=== PATIENT | male | born 2005 | race Two or more races ===

== ENCOUNTER 2024-07-03 16:45 | Emergency (ER) | payer OTHER, SELFPAY ==
[2024-07-03 16:54] VITALS: BP 118/85
[2024-07-03 17:37] VITALS: BMI 22.2
--- NOTE | 2024-07-03 17:46 | ED.GENMED ---
History of Present Illness
General
Chief Complaint: Abdominal Symptoms
Time Seen by Provider: 07/03/24 17:46
History of Present Illness
History of Present Illness:
HPI: 5 days ago, the patient started having nausea. His nausea gets worse with eating. He currently does not have nausea as he has not eaten much today. Yesterday had some diffuse abdominal discomfort but currently no longer has any abdominal
discomfort. 5 days ago when this all started, he had 'sausage that did not look good'. He denies marijuana use. He also had some loose stool. He does not take any medication.
EXAM:
GENERAL: Well appearing in no distress
HEENT: Moist oral mucosa
CARDIOVASCULAR: No murmurs, normal heart rate, regular rhythm, No chest wall tenderness
PULMONARY: No respiratory distress, breath sounds are clear and equal
ABDOMEN: Soft with no peritoneal signs, no tenderness
NEUROLOGIC: Excellent strength all extremities, no coordination deficits
PSYCHIATRIC: Appropriate mental status, normal insight and judgement
EXTREMITIES: Nontender, no edema, moves all extremities equally
SKIN: No rash, no lesions
TIME OF INITIAL ENCOUNTER: 5:50 PM
NUMBER AND COMPLEXITY OF PROBLEMS ADDRESSED AT THE ENCOUNTER
� Chronic conditions affecting care: Denies any significant past medical history
� Acute Exacerbation and/or Progression of Chronic Illness: This is an acute problem
� Differential Diagnosis includes: Viral syndrome, GERD, gastric ulcer, duodenal ulcer, nonspecific nausea
AMOUNT AND/OR COMPLEXITY OF DATA TO BE REVIEWED AND ANALYZED
� I performed an independent evaluation of and my interpretation is:
EKG:
CT:
X-rays:
Laboratory Studies: White count normal, chemistries unremarkable, lipase normal.
Other:
� Review of other/old records: I looked for old records in [facility] are no old records available for review
� Clinical information was obtained by an independent historian: None needed
� Prescriptions/Medications Considered but not given:
� Further testing considered but not performed: No clear indication for CT imaging as he has no abdominal tenderness.
RISK OF COMPLICATIONS AND/OR MORBIDITY OR MORTALITY OF PATIENT MANAGEMENT
� Social determinants of health affecting care: Lives at home
� Discussion with other providers:
� Escalation of care including admission/observation vs risk of discharge considered: The patient appears well-hydrated. His vital signs are normal. He no longer has nausea and no longer has abdominal pain. Will check labs and
reassess. On reassessment, the patient describes migraine type of symptoms. He was given Toradol and Reglan and Benadryl. At 8:30 PM, he feels markedly improved.
Phy Exam
Physical Exam
Physical Exam:
See HPI
Course
Orders/Labs/Results
Orders:
Orders
07/03/24 17:51
0.9% Sodium Chloride 1000 ml [Nss] 1,000 ml IV BOLUS
Famotidine [Pepcid] 20 mg IV NOW STA
07/03/24 17:54
Complete Blood Count/With Diff Urgent
Comprehensive Metabolic Panel Urgent
Lipase Urgent
07/03/24 19:07
Diphenhydramine [Benadryl] 25 mg IV NOW STA
Ketorolac [Toradol] 15 mg IV NOW STA
Metoclopramide [Reglan] 10 mg IV NOW STA
Abnormal Lab Results
07/03/24
17:54
MCV 76.4 L fL
(80.0-94.0)
MPV 10.7 H fL
(7.4-10.4)
Absolute Lymphs (auto) 1.1 L 10^3/uL
(1.2-3.4)
Lymphocytes % 14.7 L %
(20.5-51.1)
Potassium 3.4 L mmol/L
(3.5-5.1)
Calcium 8.3 L mg/dl
(8.4-10.2)
Total Protein 6.1 L g/dl
(6.3-8.2)
07/03/24 17:54
07/03/24 17:54
Vital Signs
Initial and Last Documented VS:
Initial Vital Signs
Temp Pulse Resp BP Pulse Ox
98.1 F 83 16 118/85 96
07/03/24 16:54 07/03/24 16:54 07/03/24 16:54 07/03/24 16:54 07/03/24 16:54
Last Documented Vital Signs
Temp Pulse Resp BP Pulse Ox
98.1 F 83 16 118/85 96
07/03/24 16:54 07/03/24 16:54 07/03/24 16:54 07/03/24 16:54 07/03/24 16:54
*Critical Care Note
Total Time (30-74mins, 75-104mins- exclusive of procedures): Not Applicable
ED Attending Note
-
Portions of this chart may have been created with voice recognition software.� Occasional wrong word or��sound alike� substitutions may have occurred due to the inherent limitations of voice recognition software.
Discharge Plan
Departure
Referrals:
Dean Khan MD [Family Provider] -
Interventions
Interventions:
*Risk Screen - Suicide Last Done: 07/03/24 17:38
*General Assessment Last Done: 07/03/24 16:54
*Neglect/Abuse Screening Last Done: 07/03/24 17:38
ED- Fall Risk Assessment Last Done: 07/03/24 17:49
*ED COVID-19 Vaccine History Last Done: 07/03/24 16:54
JE-[id number]-Vbsyawwons Assessment Last Done: 07/03/24 17:49
Discharge Date and Time
Print Language: POLISH
[2024-07-03] MEDS: PEPCID 20 MG IV (17:59)
[2024-07-03] MEDS: NSS 1000 IV (17:59)
[2024-07-03 18:00] VITALS: BP 111/75
[2024-07-03 18:02] LABS: % Basophils 0.4 % (0-2); % Eosinophils 1.3 % (0-6); % Immature Granulocytes 0.3 % (0-0.5); % Lymphocytes 14.7 % (20.5-51.1); % Monocytes 8.4 % (1.7-9.3); % Neutrophils 74.9 % (42.2-75.2); Absolute Eosinophils 0.1 10^3/uL (0-0.7); Absolute Lymphocytes 1.1 10^3/uL (1.2-3.4); Absolute Monocytes 0.6 10^3/uL (0.1-0.6); Absolute Neutrophils 5.6 10^3/uL (1.4-6.5); Hematocrit 44.3 % (39.0-52.0); Hemoglobin 16.1 g/dL (13.0-18.0); Mean Corp Hgb Conc. 36.3 g/dL (33.0-37.0); Mean Corpuscular Hgb 27.8 pg (27.0-31.0); Mean Corpuscular Volume 76.4 fL (80.0-94.0); Mean Platelet Volume 10.7 fL (7.4-10.4); Nucleated Red Blood Cells % 0 % (-); Platelet Count 183 10^3/uL (130-400); Red Cell Dist. Width 12.9 % (11.5-14.5); White Blood Cell Count 7.5 10^3/uL (4.8-10.8)
[2024-07-03 18:19] LABS: ALT (SGPT) 16 U/L (0-50); AST (SGOT) 24 U/L (17-59); Albumin 3.9 g/dl (3.5-5.0); Alkaline Phosphatase 52 U/L (38-126); Blood Urea Nitrogen 13 mg/dl (9-20); Calcium 8.3 mg/dl (8.4-10.2); Carbon Dioxide 23 mmol/L (22-30); Chloride 107 mmol/L (98-107); Estimated Creatinine Clearance 121 ml/min; Glucose 83 mg/dl (70-99); Lipase 95 U/L (23-300); Potassium 3.4 mmol/L (3.5-5.1); Sodium 138 mmol/L (135-145); Total Bilirubin 0.9 mg/dl (0.2-1.3); Total Protein 6.1 g/dl (6.3-8.2); eGFR > 60.00
[2024-07-03] MEDS: REGLAN 10 MG IV (19:17)
[2024-07-03] MEDS: TORADOL 15 MG IV (19:17)
[2024-07-03 20:00] VITALS: BP 96/63
== END 2024-07-03 22:00 | disposition home or self-care (01) ==
LOC: EMR 16:45
PROVIDERS: EMERGENCY PHYSICIAN Emergency Medicine; FAMILY PHYSICIAN Internal Medicine
DX: G43.909 Migraine, unspecified, not intractable, without status migrainosus (principal); R11.0 Nausea
CPT/HCPCS: 99283; 96374; 96375; 96361; 80053; 83690; 85025

== ENCOUNTER 2024-08-07 16:28 | Emergency (ER) | payer OTHER, SELFPAY ==
[2024-08-07 16:30] VITALS: BP 128/75
[2024-08-07] MEDS: OMNIPAQUE 50 ML PO (18:31)
--- NOTE | 2024-08-07 18:40 | ED.GENMED ---
History of Present Illness
General
Chief Complaint: Abdominal Pain
Source: patient
Exam Limitations: none
Time Seen by Provider: 08/07/24 17:55
History of Present Illness
History of Present Illness:
This is a 19 year old male that comes in with c/o abd pain. States that he was here about a month ago after eating at a deli. States that at first he had nausea for a week. Then constipation and then diarrhea. Then he was fine. States that it came
back. States that he went to . Then med week he started with diarrhea. States that this past month he has been bloated, constipation and then diarrhea. States that he is very gassy and then there is nothing. States that he has abd pain and has
lost about 10 pounds. States that his abd pain is a 3/10 with nausea and the diarrhea. States that he did have some urinary burning yesterday. Denies any fever, chills, chest pain, SOB, vomiting, headache, dizziness.
Past History
Past History
ED Past Medical History: None; Negative Asthma, HTN, Hypercholesterolemia or NIDDM
ED Past Surgical History: Tonsilectomy and Other (Eye surgery)
Social History
Tobacco: Smoker (very occasionally)
Alcohol: None
Personal: Single
Living: with family
Review of Systems
Review of Systems
All Other Systems: ROS reviewed and negative except as documented in HPI and ROS
Constitutional: Reports no symptoms; Denies fever or chills
EENT: Reports no symptoms
Respiratory: Reports no symptoms; Denies cough or trouble breathing
Cardiac: Reports no symptoms; Denies chest pain
ABD/GI: Reports abdominal pain, nausea and diarrhea; Denies vomiting
: Reports dysuria (Yesterday); Denies frequency or urgency
Musculoskeletal: Reports no symptoms
Skin: Reports no symptoms
Neurological: Reports no symptoms; Denies dizzy or headache
Psychiatric: Reports no symptoms
Phy Exam
General Physical Exam
General Presentation: no apparent distress
General age: appears stated age
General Skin: warm and dry
General Habitus: normal
General Mental: alert
General Hydration: appears well hydrated
ENT Exam
ENT Exam: TM's normal, pharynx normal and neck supple
Eye Exam
Eye Exam: EOMI
Cardiovascular Exam
Cardiovascular Exam: regular rate/rhythm, no edema, no murmur and normal peripheral pulses
Pulmonary Exam
Pulmonary Exam: lungs clear, no respiratory distress, no rales, chest non tender, no crackles, no rhonchi, no wheezing and no cough
Gastrointestinal Exam
Gastrointestinal Exam: normal bowel sounds, soft, no organomegaly, no pulsatile mass, non distended and tender (Upper abd tenderness with palpation)
Musculoskeletal Exam
Musculoskeletal Exam: full ROM and no edema
Skin Exam
Skin Exam: normal color, warm/dry, no rash and no petechia
Psychiatric Exam
Psychiatric Exam: normal mood/affect
Course
Orders/Labs/Results
Orders:
Orders
08/07/24 18:26
Iohexol [Omnipaque] 50 ml .ROUTE .[facility]
08/07/24 18:31
Iohexol [Omnipaque] See Protocol PO NOW STA
08/07/24 18:38
0.9% Sodium Chloride 1000 ml [Nss] 1,000 ml IV BOLUS
Iohexol [Omnipaque] See Protocol PO NOW STA
Pantoprazole [Protonix IV] 40 mg IV NOW STA
08/07/24 18:39
CT Abd/pel W Iv And Oral Contr Urgent
Comment:
Reason For Exam: constipation, diarrhea, abd pain, weight loss
08/07/24 18:51
Complete Blood Count/With Diff Urgent
Comprehensive Metabolic Panel Urgent
Lipase Urgent
Urinalysis Reflex To Culture Urgent
Date Specimen was Collected: 08/07/24
Time Specimen was Collected: 18:49
Abnormal Lab Results
08/07/24
18:51
MCV 77.6 L fL
(80.0-94.0)
Absolute Monos (auto) 0.7 H 10^3/uL
(0.1-0.6)
Monocytes % 10.8 H %
(1.7-9.3)
Total Protein 5.9 L g/dl
(6.3-8.2)
Urine Bilirubin 1+ A
(Negative)
08/07/24 18:51
08/07/24 18:51
Labs unremarkable. Urine negative for infection. Lipase normal at 198
Vital Signs
Initial and Last Documented VS:
Initial Vital Signs
Temp Pulse Resp BP Pulse Ox
97.3 F 76 16 128/75 98
08/07/24 16:30 08/07/24 16:30 08/07/24 16:30 08/07/24 16:30 08/07/24 16:30
Last Documented Vital Signs
Temp Pulse Resp BP Pulse Ox
97.6 F 66 18 103/73 100
08/07/24 20:47 08/07/24 20:47 08/07/24 20:47 08/07/24 20:47 08/07/24 20:47
MDM/Problems Addressed
Differential Diagnosis Includes:
Gastritis, Crohn's, IBS
MDM/Problems Addressed:
This is a 19 year old male that comes in with c/o abd pain that he has had with nausea, diarrhea and then constipation. States that he has lost 10 pounds.
will check labs. CT scan, give IV fluids and urine.
Back into see patient. Explained that his blood work is normal. Urine is negative for infection. Ct shows a moderate amount of stool but no acute abdominal findings. Patient to follow up wtih the PCP and possible the Gi specialist. will treat this
like a gastritis as patient discomfort in the upper abd. Will place on Protonix and Carafate. Return with any concerns.
Chronic conditions affecting care:
NA
Acute Exacerbation and/or Progression of Chronic Illness:
NA
*Radiology
Radiology exam reviewed: radiology read reviewed (CT night hawk- No specific cuae for abdominal pain is evident. Moderate colonic stool burden. Low attenuation structure in the dependent gastric body likely reflects ingested contents measuring up to
14X 25cm on axial. Oral contrast opacifies nonobstructed, otherwise normal appearing bowel to the ) and other (CT cont-of the mid-transverse colon. Nonobstructing eft renal calculi. Gallbladder and pancreas are unremarkable. )
*Pulse Oximetry
Patient hypoxic: no
*EKG
Interpreted by ED Provider?: NA
Rate: EKG- N/A
*[employer] Maintainer Interpretation
Rate: Signal [employer] Maintainer- N/A
*Critical Care Note
Total Time (30-74mins, 75-104mins- exclusive of procedures): Not Applicable
ED Attending Note
-
Portions of this chart may have been created with voice recognition software.� Occasional wrong word or��sound alike� substitutions may have occurred due to the inherent limitations of voice recognition software.
Discharge Plan
Departure
Patient Disposition: Home (Routine Discharge)
Date of Disposition: 08/07/24
Time of Disposition: 22:11
Patient with high blood pressure during this ER visit?: No
Condition: Good
Covid-19: Not Applicable
Discharge Problem:
Gastritis
Instructions: Gastritis (DC)
Prescriptions:
New
pantoprazole [Protonix] 40 mg tablet,delayed release (DR/EC)
40 mg PO DAILY Qty: 30 0RF
sucralfate [Carafate] 1 gram tablet
1 g PO ACHS Qty: 40 0RF
Rx Instructions:
Dissolve 10tsp water and drink. 30min-1 hour before each meal and bedtime
Referrals:
Traci Jeter MD [Family Provider] - 08/12/24
Activity Restrictions/Additional Instructions:
As discussed, your blood work is normal and your urine is negative for infection. This may be a Gastritis. You have had 2 prescriptions sent to your pharmacy. Please take the Carafate 30min-1 hour before each meal and again at bedtime. Follow up
with the family doctor. You may also need to see the GI specialist. IF YOU HAVE ANY OTHER CONCERNS PLEASE RETURN TO THE EMERGENCY ROOM.
Interventions
Interventions:
*Risk Screen - Suicide Last Done: 08/07/24 16:30
*General Assessment Last Done: 08/07/24 16:30
*Neglect/Abuse Screening Last Done: 08/07/24 16:30
ED- Fall Risk Assessment Last Done: 08/07/24 17:55
*ED COVID-19 Vaccine History Last Done: 08/07/24 16:30
DV-[id number]-Mxflqpsqpt Assessment Last Done: 08/07/24 17:55
Discharge Date and Time
Print Language: ARMENIAN
[2024-08-07] MEDS: NSS 1000 IV (19:03)
[2024-08-07 19:05] LABS: % Basophils 0.7 % (0-2); % Eosinophils 3.4 % (0-6); % Immature Granulocytes 0.2 % (0-0.5); % Lymphocytes 25.2 % (20.5-51.1); % Monocytes 10.8 % (1.7-9.3); % Neutrophils 59.7 % (42.2-75.2); Absolute Eosinophils 0.2 10^3/uL (0-0.7); Absolute Lymphocytes 1.5 10^3/uL (1.2-3.4); Absolute Monocytes 0.7 10^3/uL (0.1-0.6); Absolute Neutrophils 3.7 10^3/uL (1.4-6.5); Hematocrit 41.5 % (39.0-52.0); Hemoglobin 14.6 g/dL (13.0-18.0); Mean Corp Hgb Conc. 35.2 g/dL (33.0-37.0); Mean Corpuscular Hgb 27.3 pg (27.0-31.0); Mean Corpuscular Volume 77.6 fL (80.0-94.0); Nucleated Red Blood Cells % 0 % (-); Platelet Count 249 10^3/uL (130-400); Red Blood Cell Count 5.35 10^6/uL (4.70-6.10); Red Cell Dist. Width 13.2 % (11.5-14.5); White Blood Cell Count 6.1 10^3/uL (4.8-10.8)
[2024-08-07] MEDS: PROTONIX IV 40 MG IV (19:05)
[2024-08-07 19:10] LABS: Urine Albumin Negative (Neg - Trace); Urine Bilirubin 1+ (Negative); Urine Character Clear (Clear); Urine Color Yellow; Urine Glucose Negative (Negative); Urine Ketone Negative (Negative); Urine Leukocyte Negative (Negative); Urine Nitrite Negative (Negative); Urine Occult Blood Negative (Negative); Urine Specific Gravity 1.025 (<1.030); Urine Urobilinogen Negative (Neg - 1+)
[2024-08-07 19:17] LABS: ALT (SGPT) 35 U/L (0-50); AST (SGOT) 50 U/L (17-59); Albumin 3.7 g/dl (3.5-5.0); Alkaline Phosphatase 77 U/L (38-126); Blood Urea Nitrogen 13 mg/dl (9-20); Calcium 9.4 mg/dl (8.4-10.2); Carbon Dioxide 26 mmol/L (22-30); Chloride 103 mmol/L (98-107); Glucose 89 mg/dl (70-99); Lipase 197 U/L (23-300); Potassium 3.9 mmol/L (3.5-5.1); Sodium 139 mmol/L (135-145); Total Bilirubin 0.4 mg/dl (0.2-1.3); Total Protein 5.9 g/dl (6.3-8.2); eGFR > 60.00
[2024-08-07 20:47] VITALS: BP 103/73
== END 2024-08-07 22:20 | disposition home or self-care (01) ==
LOC: EMR 16:28
PROVIDERS: Clinical Nurse Specialist Family Health; EMERGENCY PHYSICIAN Student in an Organized Health Care Education/Training Program; FAMILY PHYSICIAN Internal Medicine
DX: K29.70 Gastritis, unspecified, without bleeding (principal); F17.200 Nicotine dependence, unspecified, uncomplicated
CPT/HCPCS: 99284; 96374; 96361; 74177; 80053; 81003; 83690; 85025; Q9967